=== PATIENT | female | born 1980 | race African-American/Black ===

== ENCOUNTER 2017-02-24 11:30 | Emergency (ER) | payer MEDICAID, OTHER ==
[~2017-02-24] VITALS: Ht 170.2 cm; Wt 86.0 kg
[2017-02-24] MEDS ORDERED: ACETAMINOPHEN 325MG TABLET PO ONE (15:00)
[2017-02-24 16:37] VITALS: BP 122/84
== END 2017-02-24 16:42 | disposition home or self-care (01) ==
LOC: ER 15:00
DX: M54.2 Cervicalgia (principal); M25.512 Pain in left shoulder; M54.89 Other dorsalgia; M79.602 Pain in left arm; X50.9XXA Other and unspecified overexertion or strenuous movements or postures, initial encounter; Y93.F2 Activity, caregiving, lifting; Y92.69 Other specified industrial and construction area as the place of occurrence of the external cause; Y99.0 Civilian activity done for income or pay; R03.0 Elevated blood-pressure reading, without diagnosis of hypertension
CPT/HCPCS: 72125; 81025; 99284

== ENCOUNTER 2024-06-22 10:23 | Emergency (ER) | payer MEDICAID, OTHER ==
[~2024-06-22] VITALS: Ht 170.2 cm; Wt 81.6 kg
[2024-06-22 10:28] VITALS: O2SAT 100
[2024-06-22 10:50] VITALS: BP 124/84; PULSE 66; RESP 16; TEMP 98.5; O2SAT 99
== END 2024-06-22 11:44 | disposition home or self-care (01) ==
LOC: ER 10:23
DX: S60.00XA Contusion of unspecified finger without damage to nail, initial encounter (principal); Z98.890 Other specified postprocedural states; X58.XXXA Exposure to other specified factors, initial encounter; Y93.89 Activity, other specified; Y92.89 Other specified places as the place of occurrence of the external cause; Y99.8 Other external cause status
CPT/HCPCS: 99281